=== PATIENT | male | born 1980 | race Two or more races ===

== ENCOUNTER 2016-08-04 17:41 | Emergency (ER) | payer OTHER ==
--- NOTE | 2016-08-04 17:57 | EDM.PDOC ---
<Kiki Olguin - Last Filed: 08/04/16 18:58> ED HPI RENAL/ - General Stated Complaint: PAIN/PRIVATE AREA Time Seen by Provider: 08/04/16 17:47 Source of Information: Reports: Patient History Limitations: Reports: No limitations - History of Present Illness INITIAL COMMENTS - FREE TEXT/NARRATIVE: History of present illness: []Patient arrives with multiple chronic complaints of testicular, bilateral knee and neck pain with difficulty breathing at night, however, he is complaining of worsening left scrotal pain today. Patient has a history of hydroceles and both testicles and has had surgery. He has no difficulty or pain with urination. Denies any blood in his urine. 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 He said no change in his symptoms he just has not had it adressed. Patient is working [place] for 2 weeks and then going back home to [place]. Review of systems: As per history of present illness and below otherwise all systems reviewed and negative. Past medical history: As per history of present illness and as reviewed below otherwise noncontributory. Surgical history: As per history of present illness and as reviewed below otherwise noncontributory. Social history: No reported history of drug or alcohol abuse. Family history: As per history of present illness and as reviewed below otherwise noncontributory. Physical exam: General: Well developed, well nourished in NAD HEENT: Atraumatic, normocephalic, pupils reactive, negative for conjunctival pallor or scleral icterus, mucous membranes moist, throat clear, neck supple, nontender, trachea midline. Lungs: Clear to auscultation, breath sounds equal bilaterally, chest nontender. Heart: S1S2, regular, negative for clicks, rubs, or JVD. Abdomen: Soft, nondistended, nontender. Negative for masses or hepatosplenomegaly. Negative for costovertebral tenderness. Pelvis: Stable nontender. Genitourinary: left scrotum soft tender, enlarged without erythema. Rectal: Deferred. Extremities: Atraumatic, negative for cords or calf pain. Neurovascular unremarkable. Neuro: Awake, alert, oriented. Cranial nerves II through XII unremarkable. Cerebellum unremarkable. Motor and sensory unremarkable throughout. Exam nonfocal. Diagnostics: []ultrasound left testicle Therapeutics: []patient declined pain medicines Impression: [] Plan: [] Definitive disposition and diagnosis as appropriate pending reevaluation and review of above. - Related Data Allergies/ADRs: Allergies Allergy/AdvReac Type Severity Reaction Status Date / Time No Known Allergies Allergy Verified 08/04/16 17:57 Home Meds: Home Meds . [No Known Home Meds] 08/04/16 [History] Past Medical History Genitourinary History: Reports: Other (see below) Other Genitourinary History: surgery for hydrocele Musculoskeletal History: Reports: Other (see below) Other Musculoskeletal History: bilateral knee injuries Psychiatric History: Reports: Addiction - Infectious Disease History Infectious Disease History: Reports: Chicken pox - Past Surgical History Musculoskeletal Surgical History: Reports: Other (see below) Other Musculoskeletal Surgeries/Procedures:: hand surgery with medal plates placed and other hardware placed Social & Family History - Tobacco Use Smoking Status *Q: Current Every Day Smoker Years of Tobacco use: 1 Packs/Tins Daily: 0.5 - Recreational Drug Use Recreational Drug Use: Yes Recreational Drug Type: Reports: Cocaine, Heroin, LSD (Acid), Marijuana/Hashish , PCP ([facility]) ED ROS GENERAL - Review of Systems Review Of Systems: See Below (See history of present illness) ED EXAM, RENAL/ - Physical Exam Exam: See Below (See history of present illness) Course - Vital Signs Last Recorded V/S: Last Vital Signs Temp 36.1 C 08/04/16 17:59 Pulse 84 08/04/16 17:59 Resp 16 08/04/16 17:59 BP 140/81 08/04/16 17:59 Pulse Ox 98 08/04/16 17:59 - Orders/Labs/Meds Orders: Active Orders 24 hr Category Date Time Status Scrotal Duplex Ltd [US] Routine Exams 08/04/16 18:44 Taken Testicular US [Scrotum and Contents] [US] Stat Exams 08/04/16 18:04 Taken Departure - Departure Disposition: Home, Self-Care 01 Clinical Impression: Left testicular pain, Epididymal cyst Referrals: PCP,None [Primary Care Provider] - Additional Instructions: The following information is given to patients seen in the emergency department who are being discharged to home. This information is to outline your options for follow-up care. We provide all patients seen in our emergency department with a follow-up referral. The need for follow-up, as well as the timing and circumstances, are variable depending upon the specifics of your emergency department visit. If you don't have a primary care physician on staff, we will provide you with a referral. We always advise you to contact your personal physician following an emergency department visit to inform them of the circumstance of the visit and for follow-up with them and/or the need for any referrals to a consulting specialist. The emergency department will also refer you to a specialist when appropriate. This referral assures that you have the opportunity for followup care with a specialist. All of these measure are taken in an effort to provide you with optimal care, which includes your followup. Under all circumstances we always encourage you to contact your private physician who remains a resource for coordinating your care. When calling for followup care, please make the office aware that this follow-up is from your recent emergency room visit. If for any reason you are refused follow-up, please contact the [facility] emergency department at and ask to speak to the emergency department charge nurse. [facility]- [facility] Medicine [facility] [address] [place] [id number] [facility] Specialty [facility]-Urology [address] [place] [id number] Use [id number] medication as you choose for pain and wear supportive briefs and use ice for any swelling. Please call and followup with your primary care physician and/or a urologist for further care and evaluation and return to ER as needed and as discussed <Demetria Hernandez - Last Filed: 08/04/16 19:37> ED HPI RENAL/ - History of Present Illness INITIAL COMMENTS - FREE TEXT/NARRATIVE: This is Dr. Hernandez dictating addendum note as I assumed care of this patient at 1900 hours. History and physical are as above. Ultrasound report reveals no evidence of torsion masses but does have a left epididymal cyst. I told the patient that he can followup with urology for further evaluation and care of this cyst and to wear supportive briefs use [id number] medications for pain and ice as needed. Impression: Left testicular pain/swelling, epididymal cyst Departure - Departure Time of Disposition: :36 Condition: good
[2016-08-04 19:52] VITALS: BP 131/80
--- NOTE | 2016-08-05 11:38 | US ---
EXAM DATE: 08/04/16 PATIENT'S AGE: 35 Patient: GEORGIANA BUENO Facility: [place], [place] Site . Site : 1980 Study: US Testicle [id number]/16/2017 7:09:18 PM Ordering Physician: Sharif Swanson Final Report: TECHNIQUE: Scrotal ultrasound with grayscale and color spectral Doppler images. INDICATION: Left testicular pain and swelling. FINDINGS: Both testicles have normal parenchymal echogenicity with no solid mass. Normal symmetric color and spectral Doppler flow to both testicles. There is a large left-sided epididymal cyst measuring 4.6 cm in diameter. There is a 3 cm right scrotal fluid collection which could be a epididymal cyst or hydrocele. IMPRESSION: 1. Both testicles appear normal. No evidence for torsion. No intratesticular mass. 2. Large left epididymal cyst. Dictated by Dillan Allred MD @ 08/04/2016 7:21:00 PM Dictated by: Dillan Allred MD @ 08/04/2016 19:21:32 (Electronic Signature) Report Signed by Proxy and Original Signed Document filed in the Medical Record. [facility]ITAL[facility]
--- NOTE | 2016-08-05 11:38 | US ---
EXAM DATE: 08/04/16 PATIENT'S AGE: 35 Patient: GEORGIANA BUENO Facility: [place], [place] Site . Site : 1980 Study: US Testicle [id number]/16/2017 7:09:18 PM Ordering Physician: Sharif Swanson Final Report: TECHNIQUE: Scrotal ultrasound with grayscale and color spectral Doppler images. INDICATION: Left testicular pain and swelling. FINDINGS: Both testicles have normal parenchymal echogenicity with no solid mass. Normal symmetric color and spectral Doppler flow to both testicles. There is a large left-sided epididymal cyst measuring 4.6 cm in diameter. There is a 3 cm right scrotal fluid collection which could be a epididymal cyst or hydrocele. IMPRESSION: 1. Both testicles appear normal. No evidence for torsion. No intratesticular mass. 2. Large left epididymal cyst. Dictated by Dillan Allred MD @ 08/04/2016 7:21:00 PM Dictated by: Dillan Allred MD @ 08/04/2016 19:21:32 (Electronic Signature) Report Signed by Proxy and Original Signed Document filed in the Medical Record. [facility]
== END 2016-08-04 19:52 | disposition home or self-care (01) ==
LOC: MW.ED 17:41
DX: N50.3 Cyst of epididymis (principal); F17.210 Nicotine dependence, cigarettes, uncomplicated; Z98.890 Other specified postprocedural states
CPT/HCPCS: 76870; 76870-26; 93976; 93976-26; 99282; 99284-25

== ENCOUNTER → 2016-08-05 | Outpatient (CLI) | payer OTHER | LOC: MW.CHUR 13:14 | PROVIDERS: ATTEND Urology | DX: N50.89 Other specified disorders of the male genital organs (principal) | CPT/HCPCS: 81001 ==